=== PATIENT | female | born 1940 | race Caucasian/White ===

== ENCOUNTER 2024-10-29 09:30 | Outpatient (RCR) | payer MEDICARE, BC, SELFPAY ==
[2024-10-04 09:18] VITALS: BP 109/68; PULSE 85; RESP 17; TEMP 36.2; O2SAT 89
[2024-10-04 11:23] VITALS: PULSE 62; RESP 16; TEMP 37.1
[2024-10-04 11:50] VITALS: BP 149/68; PULSE 62; RESP 16; TEMP 36.7; O2SAT 96
[2024-10-04 12:20] VITALS: BP 141/73; PULSE 66; RESP 16; TEMP 36.9; O2SAT 94
[2024-10-04 12:50] VITALS: PULSE 64; RESP 16; TEMP 36.9; O2SAT 93
[2024-10-04 13:20] VITALS: BP 147/75; PULSE 62; RESP 16; TEMP 36.6
[2024-10-17] VITALS (7 sets, daily range): BP systolic 77–107; BP diastolic 46–65; PULSE 66–85; RESP 12–18; TEMP 35.9–36.5; O2SAT 93–98
[2024-10-24 10:32] VITALS: BP 107/62; PULSE 67; RESP 18; TEMP 36.7; O2SAT 96
[2024-10-24 10:51] VITALS: BP 107/65; PULSE 71; RESP 18; TEMP 36.9; O2SAT 97
[2024-10-24 11:50] VITALS: BP 122/70; PULSE 67; RESP 18; TEMP 36.5; O2SAT 97
[2024-10-24 12:45] VITALS: BP 118/72; PULSE 74; RESP 18; TEMP 36.3; O2SAT 95
[2024-10-29 08:27] VITALS: BP 93/58; PULSE 90; RESP 13; TEMP 35.9; O2SAT 90
[2024-10-29] MEDS: 0.9 % SODIUM CHLORIDE 500 ML 250 ML IV (09:06)
--- NOTE | 2024-10-29 09:06 | ONC.NURNOTE ---
Patient stated she has a rash on right abdomen. This started on Monday which was 2 days after her blood transfusion. She was seen by an MD and was told it was either a reaction to the protein in the blood she recieved or it was shingles. Patient was already on acyclovir and was switched to famciclovir. Rash is contained at this time. Patient states it does not hurt, itch or burn. Educated family on how contagious this can be and to do good handwashing and stay away from infants and people. Has chronic back pain and feels she is breathing good today. Patient will be in isolation while here in the [facility].
[2024-10-29 11:45] VITALS: BP 109/63; PULSE 77; RESP 16; TEMP 37.2; O2SAT 96
[2024-10-29 12:03] VITALS: BP 99/57; PULSE 74; RESP 16; TEMP 36.8; O2SAT 95
[2024-10-29 12:25] VITALS: BP 105/61; PULSE 77; RESP 16; TEMP 36.9; O2SAT 96
[2024-10-29 13:18] VITALS: BP 107/54; PULSE 71; RESP 16; TEMP 36.6; O2SAT 96
== END 2024-11-19 23:59 | disposition home or self-care (01) ==
LOC: CCIC 09:30
PROVIDERS: PCP Internal Medicine Hematology & Oncology; Visit Provider Clinical Nurse Specialist
DX: C92.00 Acute myeloblastic leukemia, not having achieved remission (principal)
CPT/HCPCS: 36415; 36430; 86850; 86900; 86901; 86922; J7030; P9016; P9073